=== PATIENT | male | born 1975 | race Caucasian/White ===

== ENCOUNTER 2023-01-17 15:13 | Outpatient (CLI) | payer BC, SELFPAY ==
--- NOTE | 2023-01-17 15:30 | MR_ITS ---
[address] [address] Phone:?[phone] Fax:?[phone] Referring Physician Information: Ammon Luna [address] [facility] [id number] Phone:?[phone] Fax:?[phone] Patient:Sylvie Barbosa D.O.B:?1975 Sex:?Male Phone:?[phone] [facility] MRN:?[id number] Exam Date:?01/17/2023 EXAM: MRI EXAMINATION OF THE RIGHT ELBOW CLINICAL INFORMATION: Right elbow pain. No history of surgery to this area. TECHNICAL INFORMATION: Coronal T1 and STIR. Axial, sagittal and coronal PD and T2-weighted images were acquired. No prior studies for comparison. INTERPRETATION: Bones, joint and osteochondral surfaces: There is a moderately large elbow joint effusion. Mild synovitis and/or blood products. There is no loose body. There is an obliquely oriented fracture involving the anterior one half of the radial head. Minimal diastasis without step-off involving the articulating surface. Mild to moderate surrounding changes of bone marrow edema signal. No other occult fracture or osseous contusion. No discrete osteochondral lesion is seen. No appreciable changes of elbow joint osteoarthritis. No other abnormal marrow edema pattern identified. Tendons: The biceps, triceps and brachialis tendon insertions are all intact. The common flexor origin at the medial humeral epicondyle is intact. Series 5 image 12 as well as series 9 image 30 demonstrate a 0.4 x 0.7 cm low to moderate grade partial tear centered anterior to the midportion of the common extensor tendon origin. Mild thickening of the surrounding tendon fibers. Ligaments: The ulnar collateral ligament is intact without evidence of acute sprain or tear. The radial collateral and lateral ulnar collateral ligaments appear grossly intact. Nerves: The ulnar nerve appears unremarkable coursing past the elbow and through the cubital tunnel. CONCLUSION: 1. There is a minimally displaced obliquely oriented fracture involving the anterior one half of the radial head. Minimal diastasis without step-off involves the articulating surface. Mild to moderate bone marrow edema signal, and may be subacute. 2. There is a moderately large elbow joint effusion. No evidence for a loose body. 3. Tendinopathy with mild thickening of the common extensor tendon origin. There is an associated 4 x 7 mm low to moderate grade partial-thickness tear. 4. Intact appearance of the elbow ligaments, specifically without evidence for an acute injury. [facility] Electronically signed on 01/18/2023 10:15:00 AM by Rk Mcdaniel M.D.
== END 2023-01-17 15:14 | disposition home or self-care (01) ==
PROVIDERS: PCP Family Medicine; Visit Provider Physician Assistant
DX: M25.521 Pain in right elbow (principal); S52.121A Displaced fracture of head of right radius, initial encounter for closed fracture; M25.421 Effusion, right elbow
CPT/HCPCS: 73221

== ENCOUNTER 2024-03-13 10:59 | Outpatient (CLI) | payer BC, SELFPAY | END 2024-03-13 11:00 | disposition home or self-care (01) | PROVIDERS: PCP Family Medicine; Visit Provider Family Medicine | DX: Z00.00 Encounter for general adult medical examination without abnormal findings (principal); Z13.6 Encounter for screening for cardiovascular disorders; Z13.1 Encounter for screening for diabetes mellitus | CPT/HCPCS: 80048; 80061 ==